=== PATIENT | male | born 1985 | race Caucasian/White ===

== ENCOUNTER 2016-11-20 10:58 | Emergency (ER) | payer OTHER ==
[~2016-11-20] VITALS: Ht 172.7 cm; Wt 68.0 kg
[2016-11-20] MEDS ORDERED: AUGMENTIN 500-1 EACH (11:47)
--- NOTE | 2016-11-20 12:03 | ED GENERAL ADULT ---
History of Present Illness General Chief Complaint: General Adult Stated Complaint: PER PT "INFECTION ON R HAND" Source: patient Exam Limitations: no limitations Vital Signs & Intake/Output Vital Signs & Intake/Output Vital Signs Date Time Temp Pulse Resp B/P Pulse O2 O2 Flow FiO2 Ox Delivery Rate 11/20 1339 97.0 78 18 122/77 100 Room Air 11/20 1120 99.6 71 20 136/84 99 Room Air Allergies Uncoded Allergies: RASBERRIES (Intermediate, GI UPSET 11/20/16) Reconcile Medications Augmentin (Augmentin 500-125 Tablet) (Unknown Strength) TABLET (Unknown Dose) HAND INFECTION (Reported) Triage Note: TRIAGE: PT TO ER C/C INFECTION TO R HAND. HAS BEEN ON ABX X 2 ROUNDS IN THE LAST 12 DAYS. CURRENTLY TAKING AUGMENTIN CURRENTLY, PRESCRIBED. NOT IMPROVING AND EVEN WORSENING. Triage Nurses Notes Reviewed? yes Onset: Abrupt Duration: week(s): Timing: recent history HPI: 11/20/16 This is a 31-year-old man who presents to the emergency department complaining of right hand swelling. He said he was in his usual state of health until approximately 2 weeks ago when he developed an abscess to the dorsal aspect of his right hand. He followed up with an urgent care center and had an I&D. They said that it should resolve however he continued to have swelling he saw his primary care doctor will put him on antibiotics. Now he has a reaccumulation of the fluid he has a ping-pong ball size abscess to the dorsal aspect of his right hand. No other complaints. The onset of the symptoms were abrupt, the duration has been 2 weeks, the severity is significant; as his symptoms required to come to the emergency department for care. He said the initial injury occurred after he punched a wall. He said it healed up and developed a scab, the scab became infected, with a resulting abscess. X-rays were done at the urgent care center and were negative for fracture or foreign body according to the patient. He has no other injuries. 11/20/16 The patient states that he initially wants to do well but then after the scab was there he scratched it this didn't K bath and then it became infected. He says he did have x-rays at the urgent care center and there is no evidence of fracture or foreign body Past History Travel History Traveled to [place] past 21 day No Medical History Any Pertinent Medical History? see below for history Neurological: NONE EENT: NONE Cardiovascular: NONE Respiratory: NONE Gastrointestinal: NONE Hepatic: NONE Renal: NONE Musculoskeletal: NONE Psychiatric: NONE Endocrine: NONE Blood Disorders: NONE Cancer(s): NONE PHLEBOTOMY SERVICES TECHNICIAN/Reproductive: NONE Surgical History Surgical History: non-contributory Psychosocial History What is your primary language Spanish Tobacco Use: Current Daily Use Daily Tobacco Use Amount/Type: => 5 Cigarettes daily ETOH Use: heavy use Illicit Drug Use: marijuana Family History Hx Contributory? No Review of Systems Review of Systems Constitutional: Denies: fever. EENTM: Reports: no symptoms. Respiratory: Reports: no symptoms. Cardiovascular: Reports: no symptoms. GI: Reports: no symptoms. Genitourinary: Reports: no symptoms. Musculoskeletal: Reports: see HPI. Skin: Reports: no symptoms. Neurological/Psychological: Reports: no symptoms. Hematologic/Endocrine: Reports: no symptoms. Physical Exam Physical Exam General Appearance: well developed/nourished, alert, awake, anxious, mild distress Head: atraumatic, normal appearance Eyes: Bilateral: normal appearance, PERRL, EOMI. Ears, Nose, Throat: normal ENT inspection Neck: supple Respiratory: no respiratory distress Cardiovascular: regular rate/rhythm Peripheral Pulses: 4+ radial (R) Back: normal range of motion Extremities: swelling, tenderness Neurologic/Psych: no motor/sensory deficits, awake, alert, oriented x 3 Skin: intact Comments: Physical exam is significant for a 1" x 1, cystic density to the dorsal aspect of the right hand, below the knuckles at the junction of the third and fourth metacarpals. Procedure Consent was given Under sterile technique and local anesthesia, 3 mL of 1% lidocaine was utilized without epinephrine. A stab incision was made into the abscess site. Only minimal serosanguineous fluid was returned. Bacitracin and a sterile dressing was applied. There was no brittney pus. The patient was told that he'll need to follow-up with the hand surgeon, the possibility of a non-radiopaque foreign body remains. He is completed a course of antibiotics. He was given Dr. Hurley' s number, and told to call me should he not be able to get an appointment this week. Core Measures ACS in differential dx? No CVA/TIA Diagnosis: No Severe Sepsis Present: No Septic Shock Present: No Progress Differential Diagnoses I considered the following diagnoses in my evaluation of the patient: [Abscess, foreign body, fracture, ganglion cyst, lipoma] Plan of Care: Current Medications Sig/Martin Start time Last Medication Dose Stop Time Status Admin Lidocaine 5 ML ONCE ONE 11/20 1245 UNVr (Lidocaine 1%) 11/20 1246 Initial ED EKG: none Departure Departure Disposition: HOME OR SELF CARE Condition: Stable Clinical Impression Primary Impression: Abscess of right hand Referrals: ALANA DELUNA,CROW Al (PCP/Family) Departure Forms: Customer Survey General Discharge Information Comments 11/20/16 1:41 PM Critical Care Note Critical Care Note Critical Care Time: non-applicable
[2016-11-20 13:39] VITALS: BP 122/77
== END 2016-11-20 14:16 ==
LOC: ERH 10:58
DX: L02.511 Cutaneous abscess of right hand (principal)